=== PATIENT | female | born 1945 | race Caucasian/White ===

== ENCOUNTER 2018-03-03 14:34 | Emergency (ER) | payer MEDICARE, BC ==
[2018-03-03 14:52] VITALS: BP 159/64
--- NOTE | 2018-03-03 16:26 | ER Document Report ---
HPI - HPI Pain Level: Denies Notes: Patient is a 73-year-old female with a history of TMJ who presents to the ED complaining of resolved left jaw pain. Patient states that she was eating a sub -and try taking a large bite and felt her jaw shift and crack and then got stuck for a second. Patient states that after a few seconds her jaw went back in place. Patient states that she did have some soreness thereafter which since resolved. She has never had her jaw need reduced in the past. She has no other concerns or complaints at this time. Denies any headache, fever, head injury, neck pain, URI, sore throat, chest pain, palpitations, syncope, cough, shortness of breath, wheeze, dyspnea, abdominal pain, nausea/vomiting/diarrhea, urinary retention, dysuria, hematuria, or rash. - ROS Systems Reviewed and Negative: Yes All other systems reviewed and negative Past Medical History - Social History Smoking Status: Never Smoker Chew tobacco use (# tins/day): No Frequency of alcohol use: None Drug Abuse: None Family History: Reviewed & Not Pertinent Patient has suicidal ideation: No Patient has homicidal ideation: No - Past Medical History Cardiac Medical History: Reports: Hx Hypercholesterolemia Renal/ Medical History: Denies: Hx Peritoneal Dialysis Past Surgical History: Reports: Hx Hysterectomy, Hx Tonsillectomy - Immunizations Hx Diphtheria, Pertussis, Tetanus Vaccination: Yes Vertical Provider Document - CONSTITUTIONAL Agree With Documented VS: Yes Notes: PHYSICAL EXAMINATION: GENERAL: Well-appearing, well-nourished and in no acute distress. HEAD: Atraumatic, normocephalic. EYES: Pupils equal round and reactive to light, extraocular movements intact, sclera anicteric, conjunctiva are normal. ENT: EAC clear b/l. TM's intact b/l without erythema, fluid, or perforation. Nares patent and without discharge. oropharynx clear without exudates. No tonsilar hypertrophy or erythema. Moist mucous membranes. No sinus tenderness. Uvula midline. No palatine shift. No tongue protrusion. No respiratory compromise. jaw: no click noted. FROM. Strength intact. Not dislocated. Mouth: No obvious abscess or discharge noted. No facial swelling. non-tender to teeth to palp. NECK: Normal range of motion, supple without lymphadenopathy. No rigidity/ meningismus. LUNGS: Breath sounds clear to auscultation bilaterally and equal. No wheezes rales or rhonchi. HEART: Regular rate and rhythm without murmurs, rubs, gallops. NEUROLOGICAL: Cranial nerves grossly intact. Normal speech, normal gait. Normal sensory, motor exams PSYCH: Normal mood, normal affect. SKIN: Warm, Dry, normal turgor, no rashes or lesions noted. - INFECTION CONTROL TRAVEL OUTSIDE OF THE [place] IN LAST 30 DAYS: No Course - Re-evaluation Re-evalutation: 03/03/18 16:28 Patient is an afebrile, well-hydrated, 73-year-old female who presents to the ED with resolved jaw pain. Vitals are acceptable. PE is otherwise unremarkable. I suspect that patient may have had a mild dislocation of her jaw that spontaneously resolved on its own. Patient is otherwise a symptomatic at this time. She has no significant tachycardia, tachypnea, or hypoxia. She is tolerating p.o. without any difficulties. No labs or imaging warranted at this time based on H&P. Advised patient not to open her jaw to wide open at this time. Conservative measures otherwise for symptoms. Recheck with your PCM in 3-5 days. Consider consult with oral facial surgeon. Return to the ED with any worsening/concerning symptoms otherwise as reviewed discharge. Patient is in agreement. - Vital Signs Vital signs: Temp Pulse Resp BP Pulse Ox 97.7 F 68 20 159/64 H 97 03/03/18 14:48 03/03/18 14:48 03/03/18 14:48 03/03/18 14:48 03/03/18 14:48 Discharge - Discharge Clinical Impression: Jaw pain Condition: Stable Disposition: HOME, SELF-CARE Additional Instructions: Rest, Ice Tylenol/ibuprofen as needed Light stretches daily Strength exercises as able Moist heat and massage may help F/u with your PCP in 3-5 days for a recheck Consider consult(s) with Oral/facial surgery for ongoing/worsening symptoms Return to the ED with any worsening symptoms and/or development of fever, headache, chest pain, palpitations, syncope, shortness of breath, trouble breathing, abdominal pain, n/v/d, muscle weakness/paralysis, numbness/tingling, swelling, redness, or other worsening symptoms that are concerning to you. Forms: Elevated Blood Pressure Referrals: DAYSI BANEGAS MD [ACTIVE STAFF] - Follow up as needed
== END 2018-03-03 17:05 | disposition home or self-care (01) ==
LOC: ER 14:34
DX: R68.84 Jaw pain (principal)
CPT/HCPCS: 99283

== ENCOUNTER 2018-05-03 08:32 | Emergency (ER) | payer MEDICARE, BC ==
[2018-05-03] MEDS ORDERED: NORMAL SALINE 1000 ML 1,000 ML IV ONE (08:39)
--- NOTE | 2018-05-03 08:53 | ER Document Report ---
ED General - General Stated Complaint: SNAKE BITE RIGHT ANKLE Time Seen by Provider: 05/03/18 08:38 Mode of Arrival: Medic Information source: Patient Notes: Patient was outside 1 hours prior to arrival when felt sharp pain in the R ankle. Looked down and saw a copperhead curled up. Patient called EMS. Area was circled. Patient only complains of localized pruritus and mild swelling. Patient denies chest pain, shortness of breath, numbness, tingling, weakness, bleeding. Patient has a history of HTN and hyperlipidemia. Is not on anti- coagulants. TRAVEL OUTSIDE OF THE [place] IN LAST 30 DAYS: No - HPI Onset: Just prior to arrival Onset/Duration: Sudden Quality of pain: No pain Severity: None Pain Level: Denies Associated symptoms: None Exacerbated by: Denies Relieved by: Denies Similar symptoms previously: No - Related Data Allergies/Adverse Reactions: aspirin Allergy (Verified 05/03/18 09:58) cefprozil [From Cefzil] Allergy (Verified 05/03/18 09:58) Sulfa (Sulfonamide Antibiotics) Allergy (Verified 05/03/18 09:58) Past Medical History - General Information source: Patient - Social History Smoking Status: Never Smoker Family History: Reviewed & Not Pertinent - Past Medical History Cardiac Medical History: Reports: Hx Hypercholesterolemia Renal/ Medical History: Denies: Hx Peritoneal Dialysis Past Surgical History: Reports: Hx Hysterectomy, Hx Tonsillectomy - Immunizations Hx Diphtheria, Pertussis, Tetanus Vaccination: Yes Review of Systems - Review of Systems Constitutional: No symptoms reported EENT: No symptoms reported Cardiovascular: No symptoms reported Respiratory: No symptoms reported Gastrointestinal: No symptoms reported Genitourinary: No symptoms reported Female Genitourinary: No symptoms reported Musculoskeletal: Ankle swelling Skin: Other - R ankle edema Hematologic/Lymphatic: No symptoms reported Neurological/Psychological: No symptoms reported -: Yes All other systems reviewed and negative Physical Exam - Vital signs Vitals: Temp Pulse Resp BP Pulse Ox 98.8 F 81 16 169/81 H 100 05/03/18 08:37 05/03/18 08:37 05/03/18 08:37 05/03/18 08:37 05/03/18 08:37 Interpretation: Normal - Notes Notes: PHYSICAL EXAMINATION: GENERAL: Well-appearing, well-nourished and in no acute distress. HEAD: Atraumatic, normocephalic. EYES: Pupils equal round and reactive to light, extraocular movements intact, conjunctiva are normal. ENT: Nares patent, oropharynx clear without exudates. Moist mucous membranes. NECK: Normal range of motion, supple without lymphadenopathy LUNGS: Breath sounds clear to auscultation bilaterally and equal. No wheezes rales or rhonchi. HEART: Regular rate and rhythm without murmurs ABDOMEN: Soft, nontender, nondistended abdomen. No guarding, no rebound. No masses appreciated. Female : deferred Musculoskeletal: Normal range of motion, no pitting or edema. No cyanosis. RLE 2+ DP/PT pulses. NEUROLOGICAL: Cranial nerves grossly intact. Normal speech, normal gait. Normal sensory, motor exams PSYCH: Normal mood, normal affect. SKIN: Right ankle golfball size area of swelling. No erythema. Course - Re-evaluation Re-evalutation: 05/03/18 09:18 I spoke with poison control. They do not recommend obtaining labs until the 6 hour jono. Labs were drawn. They recommend elevating the right lower extremity , obtaining hourly measurements of the right lower extremity, updating tetanus, and monitoring for 4-6 hours. 05/03/18 11:56 Patient re-evaluated. No systemic symptoms. No erythema, bruising, tenderness with palpation. Bite bark with dried appreciated. 05/03/18 13:20 Patient re-evaluated. Continues to have no systemic symptoms. No worsening swelling. No erythema, bruising, tenderness, or pain to the bite site. Poison control nurse, Blanca, spoke with the ED nurse. She is okay with the patient being discharged home. She will contact the patient around 6 PM to discuss any new changes. Patient is agreeable with plan of care. Patient told to return to the ED if she begins experiencing nausea, vomiting, chest pain, shortness of breath, or notices worsening changes to the bite area. - Vital Signs Vital signs: Temp Pulse Resp BP Pulse Ox 98.8 F 74 12 105/61 97 05/03/18 08:50 05/03/18 08:50 05/03/18 12:08 05/03/18 12:09 05/03/18 12:09 - Laboratory Result Diagrams: 05/03/18 09:17 05/03/18 09:17 Laboratory results interpreted by me: 05/03/18 05/03/18 09:17 10:05 D-Dimer 0.72 H Sodium 146.1 H Potassium 5.3 H Chloride 110 H Glucose 121 H Creatine Kinase 183 H Discharge - Discharge Clinical Impression: Snake bite Qualifiers: Encounter type: initial encounter Qualified Code(s): W59.11XA - Bitten by nonvenomous snake, initial encounter Condition: Good Disposition: HOME, SELF-CARE Instructions: Snakebites (OM) Referrals: KELVIN PADRON MD [Primary Care Provider] - Follow up as needed
[2018-05-03] MEDS ORDERED: DIPH/PERTUSS(ACELL)/TETANUS VAC/PF 0.5 ML SYR (>=10YO) IM ONE (09:20)
[2018-05-03] MEDS ORDERED: CLONIDINE HCL 0.1 MG TABLET PO ONE (09:29)
[2018-05-03 09:45] LABS: ABSOLUTE EOSINOPHILS # (AUTO) 0.1 10^3/uL (0.0-0.6); ABSOLUTE LYMPHOCYTES (AUTO) 1.5 10^3/uL (0.5-4.7); ABSOLUTE MONOCYTES (AUTO) 0.4 10^3/uL (0.1-1.4); ABSOLUTE NEUT (AUTO) 2.6 10^3/uL (1.7-8.2); BASOPHILS % (AUTO) 0.5 % (0-2); EOSINOPHILS % (AUTO) 1.9 % (0-6); HEMATOCRIT 43.6 % (36.0-47.0); HEMOGLOBIN 14.5 g/dL (12.0-15.5); LYMPHOCYTES % (AUTO) 33.1 % (13-45); MEAN CORPUSCULAR HGB CONC 33.3 g/dL (32.0-36.0); MEAN CORPUSCULAR VOLUME 87 fl (80-97); MONOCYTES % (AUTO) 7.8 % (3-13); PLATELET COUNT 221 10^3/uL (150-450); RED BLOOD COUNT 5.02 10^6/uL (3.72-5.28); SEGMENTED NEUTROPHILS % (AUTO) 56.7 % (42-78); TOTAL CELLS COUNTED % (AUTO) 100 %; WHITE BLOOD COUNT 4.6 10^3/uL (4.0-10.5)
[2018-05-03 09:52] LABS: ANION GAP 13 (5-19); BLOOD UREA NITROGEN 18 mg/dL (7-20); CALCIUM 9.9 mg/dL (8.4-10.2); CARBON DIOXIDE 23 mmol/L (22-30); CHLORIDE 110 mmol/L (98-107); CREATINE KINASE 183 U/L (30-135); GLUCOSE 121 mg/dL (75-110); POTASSIUM 5.3 mmol/L (3.6-5.0); SODIUM 146.1 mmol/L (137-145)
[2018-05-03 10:31] LABS: INTERNATIONAL RATION (INR) 0.89; PROTHROMBIN TIME 12.4 SEC (11.4-15.4)
[2018-05-03 10:32] LABS: FIBRINOGEN 330 mg/dL (209-497); PARTIAL THROMBOPLASTIN TIME 31.9 SEC (23.5-35.8)
[2018-05-03 10:34] LABS: D-DIMER 0.72 ug/mL (0.00-0.50)
[2018-05-03 10:53] LABS: APPEARANCE,URINE CLEAR; BILIRUBIN,URINE NEGATIVE (NEGATIVE); COLOR,URINE STRAW; GLUCOSE, URINE NEGATIVE (NEGATIVE); KETONES,URINE NEGATIVE (NEGATIVE); LEUKOCYTE ESTERASE,URINE NEGATIVE (NEGATIVE); NITRITE,URINE NEGATIVE (NEGATIVE); PROTEIN,URINE NEGATIVE (NEGATIVE); URINE SPECIFIC GRAVITY 1.004; UROBILINOGEN,URINE NEGATIVE mg/dL (<2.0)
[2018-05-03 13:47] VITALS: BP 102/62
== END 2018-05-03 13:35 | disposition home or self-care (01) ==
LOC: ER 08:32
DX: T63.091A Toxic effect of venom of other snake, accidental (unintentional), initial encounter (principal); I10 Essential (primary) hypertension; E78.5 Hyperlipidemia, unspecified
CPT/HCPCS: 99284; 90471; 36415; 82550; 85025; 85384; 85362; 85610; 85730; 83874; 80048; 81001; 85379; 90715; A9270; J7030